=== PATIENT | female | born 1985 | race Two or more races ===

== ENCOUNTER 2021-01-14 08:51 | Day surgery (SDC) | payer MEDICAID ==
[~2021-01-14] VITALS: Ht 172.7 cm; Wt 139.1 kg
[~2021-01-14 08:51] MED LIST: ALPR-624 PO; BENZ-16 PO; DIAZ5TAB22 PO; DICY10CA88 PO; LEVA15HF4 IH; METH-603 PO; NORCO10T PO; TRAZ-89 PO; ZOF4T PO
[2021-01-14] MEDS ORDERED: LIDOcaine Viscous 15ml cup ONE (08:56)
[2021-01-14] MEDS ORDERED: fentaNYL/PF 50MCG/1 ML 2ML syringe ONE (08:56)
[2021-01-14] MEDS ORDERED: MIDAZolam 1 MG/ML 5ML VIAL ONE ×2 (08:56)
[2021-01-14 09:03] VITALS: BP 154/103
[2021-01-14] MEDS ORDERED: OMEP-50 PO (09:08)
[2021-01-14] MEDS ORDERED: GABA600T13 PO (09:09)
[2021-01-14] MEDS ORDERED: LISI20TA28 PO (09:14)
[2021-01-14 10:18] VITALS: BP 153/90
[2021-01-14 10:28] VITALS: BP 138/81
[2021-01-14 10:38] VITALS: BP 137/75
[2021-01-14 10:48] VITALS: BP 131/78
== END 2021-01-14 11:08 | disposition home or self-care (01) ==
LOC: GI LAB 08:51
PROVIDERS: ATTEND Internal Medicine Gastroenterology
DX: K92.1 Melena (principal); R12 Heartburn; K29.50 Unspecified chronic gastritis without bleeding; K44.9 Diaphragmatic hernia without obstruction or gangrene; K25.9 Gastric ulcer, unspecified as acute or chronic, without hemorrhage or perforation; I10 Essential (primary) hypertension; E66.9 Obesity, unspecified; Z68.42 Body mass index [BMI] 45.0-49.9, adult; Z88.8 Allergy status to other drugs, medicaments and biological substances; Z88.2 Allergy status to sulfonamides; Z88.5 Allergy status to narcotic agent; Z86.73 Personal history of transient ischemic attack (TIA), and cerebral infarction without residual deficits; Z87.891 Personal history of nicotine dependence
CPT/HCPCS: 43239; 99152; J2250; J3010; J7040; A4620

== ENCOUNTER 2025-05-15 19:42 | Emergency (ER) | payer MEDICAID ==
[~2025-05-15] VITALS: Ht 172.7 cm; Wt 124.5 kg
[~2025-05-15 19:42] MED LIST changes: -ALPR-624 PO; -BENZ-16 PO; -DICY10CA88 PO; +GABA-1405 PO; -LEVA15HF4 IH; +LISI20TA28 PO; -METH-603 PO; -NORCO10T PO; +OMEP20CA16 PO; -TRAZ-89 PO
[2025-05-15 20:01] VITALS: TEMP 98.4
[2025-05-15 20:24] LABS: MEAN PLATELET VOLUME 7.7 FL (7.4-10.4); RED CELL DISTRIBUTION WIDTH 13.0 % (11.5-14.5)
[2025-05-15 20:41] LABS: CREATININE 0.75 MG/DL (0.40-0.90); TOTAL CARBON DIOXIDE 29.6 MMOL/L (24-32); eCRCL 99 ML/MIN; eGFR 85 ML/MIN
[2025-05-15 22:19] LABS: URINE HCG NEGATIVE (NEG)
--- NOTE | 2025-05-15 22:19 | Physician Documentation ---
History of Present Illness ~ Chief Complaint: Urinary Symptoms Stated Complaint: ABDOMINAL PAIN Time Seen by MD: 21:59 Primary Medical Doctor: Mariano Melgar Mode of Arrival: POV, Ambulatory HPI Patient presents to the emergency room with left-sided abdominal pain and back pain. She states that has began this afternoon of sudden onset. History of kidney stones. She also endorses dysuria. No fevers. Patient also endorses diarrhea over the past 10 days. No nausea or vomiting. She has had some Tylenol for her pain Medication Reconciliation Allergies: Coded Allergies: fentanyl (Verified Allergy, Severe, ANAPHLYAXIS, 05/15/25) Bacitracin Zinc (Unverified Allergy, Unknown, 05/15/25) Sulfa (Sulfonamide Antibiotics) (Verified Allergy, Unknown, 05/15/25) bacitracin (Unverified Allergy, Unknown, 05/15/25) benzalkonium chloride (Unverified Allergy, Unknown, 05/15/25) clonidine (Unverified Allergy, Unknown, 05/15/25) gramicidin D (Unverified Allergy, Unknown, 05/15/25) neomycin sulfate (Unverified Allergy, Unknown, 05/15/25) polymyxin B (Unverified Allergy, Unknown, 05/15/25) polymyxin B sulfate (Unverified Allergy, Unknown, 05/15/25) tomato (Unverified Allergy, Unknown, 05/15/25) morphine (Verified Adverse Reaction, Mild, NAUSEA, 05/15/25) Scheduled Diazepam* (Valium*), 10 MG PO HS, (Reported) Gabapentin (Gabapentin), 1 TAB PO DAILY, (Reported) Lisinopril (Lisinopril), Unknown Dose PO DAILY, (Reported) Omeprazole (Omeprazole), 1 CAP PO DAILY, (Reported) Ondansetron ODT* (Zofran ODT*), 4 MG PO Q6H Past Medical History Past Medical History: Seizures, Asthma, GERD, Kidney Stones, Chronic Pain, Chronic Back Pain, Anxiety, Bipolar, Depression, Schizophrenia Past Surgical History: cholecystectomy, tonsillectomy, tubal ligation Alcohol Use: None Drug Use: marijuana, methamphetamine, heroin Lives with: S/O Lives In: Home Occupation: disabled Review of Systems ROS All review of systems negative except as per HPI Physical Exam Vital Signs: Temperature: 98.4, Source: Oral, Heart Rate: 69, Respiratory Rate: 16, BP: 174/103, Pulse Oximetry: 98, Weight: 124.550 Oxygen Flow Rate: 0 Physical Exam General: Patient is awake, alert, oriented x4 in no acute distress and well appearing.~ Head: Normocephalic and atraumatic. Eyes: Conjunctival normal. EOMI. PERRL. ENT: Mucous membranes moist. Neck: Supple, trachea is midline. Chest: Clear to auscultation bilaterally without rales, rhonchi, or wheezes. There is no accessory muscle use or retractions. Cardiac: RRR without murmurs, gallops, or rubs. Abd: Soft, nondistended, mild left lower quadrant tenderness to palpation without peritonitis Back: Left-sided CVA tenderness to palpation. Progress Results/Orders Results/Orders Orders - ROCK RIVERA MD Ct Abdomen Pelvis (05/15/25 22:55) Completed Orders - ROCK RIVERA MD Urinalysis, Cult If Indicated (05/15/25 20:08) Hcg, Ur Ql (05/15/25 20:08) Cbc/Diff (05/15/25 20:08) BMP (05/15/25 20:08) Lipase (05/15/25 20:08) CMP (05/15/25 20:08) Ketorolac Trometh 15mg/Ml Vial (Toradol (05/15/25 22:30) Ct Abdomen Pelvis (05/15/25 22:55) Medications Received in ER Medications (Trade) Dose Ordered Sig/Alva Route PRN Reason Start Time Stop Time Status Last Admin Dose Admin (Toradol injection) 30 mg ONCE ONCE IM 05/15/25 22:30 05/15/25 22:31 DC 05/15/25 23:22 30 MG Vital Signs 05/15/25 05/15/25 05/15/25 05/15/25 20:01 21:56 22:00 23:00 Temp 98.4 Pulse 74 69 65 Resp 16 16 16 14 B/P (MAP) 151/103 174/103 (126) 155/92 (113) Pulse Ox 100 98 98 O2 Flow Rate 0 0 0 05/15/25 23:22 Resp 14 Laboratory Tests Test 05/15/25 20:09 05/15/25 20:15 Urine Specimen Description Cln catch midstream Urine Color Straw Urine Clarity Clear Urine pH 7.0 Urine Specific [place] 1.010 Urine Protein Negative Urine Glucose (UA) Negative Urine Ketones Negative Urine Occult Blood Negative Urine Nitrite Negative Urine Bilirubin Negative Urine Urobilinogen 0.2 Urine Leukocyte Esterase Negative Urine Culture Indicated Not ind Volume Urine Centrifuged 10 ml Urine HCG, Qualitative Negative Urine Comment White Blood Count 8.3 Red Blood Count 4.31 Hemoglobin 13.2 Hematocrit 38.0 Mean Corpuscular Volume 88.1 Mean Corpuscular Hemoglobin 30.6 Mean Corpuscular Hemoglobin Concent 34.7 Red Cell Distribution Width 13.0 Platelet Count 291 Mean Platelet Volume 7.7 Neutrophils (%) (Auto) 63.6 Lymphocytes (%) (Auto) 23.0 Monocytes (%) (Auto) 9.0 Eosinophils (%) (Auto) 3.4 Basophils (%) (Auto) 1.0 Neutrophils # (Auto) 5.3 Lymphocytes # (Auto) 1.9 Monocytes # (Auto) 0.7 Eosinophils # (Auto) 0.3 Basophils # (Auto) 0.1 CBC Comment Sodium Level 138 Potassium Level 4.2 Chloride Level 103 Carbon Dioxide Level 29.6 Anion Gap 5 L Blood Urea Nitrogen 14 Creatinine 0.75 Estimated GFR/1.73 m2 85 BUN/Creatinine Ratio 18.7 Glucose Level 77 Calcium Level 8.2 L Total Bilirubin 0.4 Aspartate Amino Transf (AST/SGOT) 19 Alanine Aminotransferase (ALT/SGPT) 25 Alkaline Phosphatase 88 Total Protein 7.6 Albumin 3.6 Globulin 4.0 Albumin/Globulin Ratio 0.9 L Lipase 70 Chemistry Comments Medical Decision Making Additional information obtaine: old records Findings Patient presents to the emergency room for evaluation of abdominal pain. Differentials include but are not limited to infectious process, kidney stone, aortic pathology, diverticulitis, constipation therefore emergent labs and imaging indicated. Labs and imaging reassuring. Upon re-evaluation patient was sleeping comfortably. Urinary Diff Dx:Considerations: Include: AAA, , Aortic dissection, Appendicitis, Bowel obstruction, Cholelithiasis, Choleangitis, DJD, Ectopic , Hepatitis, HNP, Impaction, Intrauterine , Musculoskeletal pain, Ovarian torsion, Pancreatitis, PID, Post-Op complication, Pyelonephritis, Renal failure, Strain, Urinary Obstruction, Urolithiasis, Urinary retention, UTI, Vaginitis, Other Genital Diff Dx:Considerations: Include: -Complete, - Incomplete, -Inevitable, Ablortion-Missed, -Threatened, Abruptio placentae, Bartholin abscess, Bartholin cyst, Blood loss anemia, Constipation, Cervicitis, Dsymenorrhea, Ectopic , Foreign body, Hormonal, Hidradenitis suppurativa, Intrauterine , Menorrhagia, Menometrorrhagia, Menstrual bleeding, Myomatous uterus, Perianal abscess, Physiologic discharge, Pinworms, PID, Placenta previa, , Precipitous Hct, Trauma, UTI, Vaginitis(osis)-Atrophic, Vaginitis, Vaginitis(osis)-Bacterial, Vaginitis(osis)- Candidal, Vaginitis(osis)-Contact, Vaginitis(osis)-Herpes, Vaginitis(osis)- Trich., Other Departure Disposition: HOME / SELF CARE / HOMELESS Impression: Primary Impression: Abdominal pain Condition: Stable Discharge Instructions: Abdominal Pain, Adult Referrals: NO PRIMARY CARE PROVIDER (PCP) Signature Scribe Signature: No scribe Attestation: The note accurately reflects work and decisions made by me.Rock Rivera MD 05/16/25 00:33 ROCK RIVERA MD May 15, 2025 22:19
[2025-05-15 22:26] LABS: LEUKOCYTE ESTERASE ,URINE NEGATIVE (Neg); NITRITES, URINE NEGATIVE (Neg); OCCULT BLOOD,URINE NEGATIVE (Neg)
[2025-05-15 22:30] LABS: UA COLLECTION TYPE CLN CATCH MIDSTREAM
[2025-05-15 23:00] VITALS: BP 155/92; PULSE 65; O2SAT 98
[2025-05-15 23:22] VITALS: RESP 14
[2025-05-15] MEDS: ketorolac trometh 15mg/ml vial 15 MG/ML ML IM ONE (23:22)
--- NOTE | 2025-05-15 23:25 | RADIOLOGY REPORT ---
Exam: CT CT ABDOMEN PELVIS History: llq pain Comparison Study: None Technique: Multidetector spiral CT of the abdomen was performed from lung bases to pubic symphysis. Imaging was performed without IV contrast. Axial, coronal and sagittal multiplanar reformats were obtained from the axial data set by the technologist. Radiation Dose : 1. Abdomen/Pelvis: CTDIvol 37 mGy, DLP 1940 mGy*cm. Findings: Evaluation of solid organs is limited due to lack of intravenous contrast use. Lower Chest: No acute findings. Liver: Unremarkable. Gallbladder and Biliary Tree: Cholecystectomy change. Pancreas: Mild atrophy. Spleen: Unremarkable. Adrenal Glands: Unremarkable. Kidneys/Ureters: No urinary stone or obstruction. Bladder: Grossly unremarkable for degree of distention. Pelvic Organs: Absent uterus. Bowel: No evidence of bowel wall thickening or obstruction. Small hiatal hernia. The appendix appears surgically absent. Vasculature: Unremarkable. Lymphadenopathy: No obvious adenopathy. Peritoneum: No ascites, free air, or fluid collection. Abdominal Wall: No acute abnormality. Left lateral mid abdomen subcentimeter metallic density in the subcutaneous tissues. Musculoskeletal: No acute findings. Mild L5-S1 spondylosis. IMPRESSION: 1. No acute abdominopelvic abnormality, evidence of urinary stone or obstruction. 2. Chronic and incidental findings as above. Radiation optimization: All CT scans at this facility use at least one of these dose optimization techniques: automated exposure control mA and/or kV adjustment per patient size (includes targeted exams where dose is matched to clinical indication) or iterative reconstruction.
== END 2025-05-16 00:50 | disposition home or self-care (01) ==
LOC: ER 19:42
DX: R10.32 Left lower quadrant pain (principal); F20.9 Schizophrenia, unspecified; F31.9 Bipolar disorder, unspecified; G89.29 Other chronic pain; J45.909 Unspecified asthma, uncomplicated; F41.9 Anxiety disorder, unspecified; K21.9 Gastro-esophageal reflux disease without esophagitis; F12.90 Cannabis use, unspecified, uncomplicated; F15.90 Other stimulant use, unspecified, uncomplicated; F11.90 Opioid use, unspecified, uncomplicated; Z90.49 Acquired absence of other specified parts of digestive tract; Z90.89 Acquired absence of other organs; Z88.2 Allergy status to sulfonamides; Z98.51 Tubal ligation status; Z88.8 Allergy status to other drugs, medicaments and biological substances; Z88.5 Allergy status to narcotic agent; Z88.1 Allergy status to other antibiotic agents; Z87.442 Personal history of urinary calculi; Z79.899 Other long term (current) drug therapy
CPT/HCPCS: 36415; 74176; 80053; 81003; 81025; 83690; 85025; 96372; 99285; J1885

== ENCOUNTER 2025-05-21 15:35 | Emergency (ER) | payer MEDICAID ==
[~2025-05-21] VITALS: Ht 170.2 cm; Wt 122.7 kg
--- NOTE | 2025-05-21 15:51 | ELECTROCARDIOGRAPH REPORT ---
[facility] Test Date: 2025-05-21 Test Time: 15:49:33 Pat Name: FARRAH ONOFRE Department: EMERGENCY ROOM Room: Gender: F [employer]: : [id number] Requested By: ROSE TERRELL Order Number: [id number] Reading MD: Dr. Messi Merrill Measurements Intervals [place] Rate: 68 P: 16 ID: [id number] QRS: -56 QRSD: 118 T: 24 QT: 415 QTc: 442 Interpretive Statements Sinus rhythm Nonspecific IVCD with LAD Inferior infarct, old Anterior infarct, old Electronically Signed On 05-22-2025 18:48:[address] Messi Merrill Please click the below link to view image of tracing.
[2025-05-21 15:55] LABS: MEAN PLATELET VOLUME 7.6 FL (7.4-10.4); RED CELL DISTRIBUTION WIDTH 12.9 % (11.5-14.5)
[2025-05-21 16:15] LABS: CREATININE 0.73 MG/DL (0.40-0.90); PRO BRAIN NATRIURETIC PEPTIDE 94 PG/ML (0-125); TOTAL CARBON DIOXIDE 28.9 MMOL/L (24-32); eCRCL 98 ML/MIN; eGFR 87 ML/MIN
--- NOTE | 2025-05-21 16:21 | RADIOLOGY REPORT ---
CHEST RADIOGRAPH Indication: CP Technique: Single frontal view of the chest was obtained COMPARISON: CT CT ABDOMEN PELVIS on DOS: 05/15/25 FINDINGS: Lines and Tubes: None Lungs: Clear Pleura: No effusion. No pneumothorax. Cardiomediastinal contours: Unremarkable Bones: Unremarkable IMPRESSION: No acute disease.
[2025-05-21 18:40] VITALS: BP 121/68; PULSE 83; RESP 16; TEMP 98; O2SAT 97
--- NOTE | 2025-05-21 19:18 | RADIOLOGY REPORT ---
CLINICAL HISTORY: pain, numbness, fall TECHNIQUE: CT exam of the cervical spine was performed without intravenous contrast. This exam was performed according to our departmental dose optimization program. Up-to-date CT equipment and radiation dose reduction techniques are utilized as appropriate. CTDI 24 DLP 552 COMPARISON: CT CT ABDOMEN PELVIS on DOS: 05/15/25 FINDINGS: There is straightening of the normal cervical lordosis, likely related patient positioning or previous surgery. There has been anterior C4-C5 fusion surgery with an anterior surgical plate and bilateral vertebral body screws present. There is a disc spacer present at C4-C5. The prevertebral space is within normal limits. No acute fracture is seen There is no high-grade central canal or neural foraminal narrowing by CT. IMPRESSION: C4-C5 fusion surgery. No acute abnormality seen.
[2025-05-21] MEDS: ondansetron 4mg rapidly disintigrating tab PO ONE (19:19)
[2025-05-21] MEDS ORDERED: HYDR-3965 PO (19:43)
[2025-05-21] MEDS: HYDROcodone/acetaminophen 10/325mg tab PO ONE (19:45)
--- NOTE | 2025-05-21 19:47 | Physician Documentation ---
History of Present Illness ~ Chief Complaint: Chest Pain Stated Complaint: ARM NUMBNESS/CHEST PAIN Time Seen by MD: 17:24 Primary Medical Doctor: Mariano Melgar Mode of Arrival: POV, Ambulatory HPI Patient 40-year-old female that reports to the emergency department for evaluation of chest wall pain times several days possibly weeks. Patient reports that she has numbness and tingling in her upper extremities she believes that is secondary to a previous cervical spine injury and fusion. Patient reports that she fell approximately 3 weeks ago and is concerned that she may have re-injured that. Since that time her chest wall has been sore. Patient denies any shortness of breath chest pain that radiates chest pressure nausea vomiting diarrhea or any other symptoms at this time. Tetanus within 5 Years?: No Allergies: Coded Allergies: fentanyl (Verified Allergy, Severe, ANAPHLYAXIS, 05/15/25) Bacitracin Zinc (Unverified Allergy, Unknown, 05/15/25) Sulfa (Sulfonamide Antibiotics) (Verified Allergy, Unknown, 05/15/25) bacitracin (Unverified Allergy, Unknown, 05/15/25) benzalkonium chloride (Unverified Allergy, Unknown, 05/15/25) clonidine (Unverified Allergy, Unknown, 05/15/25) gramicidin D (Unverified Allergy, Unknown, 05/15/25) neomycin sulfate (Unverified Allergy, Unknown, 05/15/25) polymyxin B (Unverified Allergy, Unknown, 05/15/25) polymyxin B sulfate (Unverified Allergy, Unknown, 05/15/25) tomato (Unverified Allergy, Unknown, 05/15/25) morphine (Verified Adverse Reaction, Mild, NAUSEA, 05/15/25) Active Prescriptions See Medication Reconciliation Form. Medication Reconciliation Scheduled Diazepam* (Valium*), 10 MG PO HS, (Reported) Gabapentin (Gabapentin), 1 TAB PO DAILY, (Reported) Lisinopril (Lisinopril), Unknown Dose PO DAILY, (Reported) Omeprazole (Omeprazole), 1 CAP PO DAILY, (Reported) Ondansetron ODT* (Zofran ODT*), 4 MG PO Q6H Past Medical History Past Medical History: Seizures, Asthma, GERD, Kidney Stones, Chronic Pain, Chronic Back Pain, Anxiety, Bipolar, Depression, Schizophrenia Past Surgical History: cholecystectomy, tonsillectomy, tubal ligation Smoking Status: Current every day smoker Alcohol Use: None Drug Use: marijuana, methamphetamine, heroin Lives with: S/O Lives In: Home Occupation: disabled Review of Systems ROS As stated above in the HPI, otherwise all systems are reviewed and negative. Physical Exam Vital Signs: Temperature: 98.0, Source: Oral, Heart Rate: 83, Respiratory Rate: 16, BP: 121/68, Pulse Oximetry: 97, Weight: 122.730 Oxygen Flow Rate: 0 Physical Exam VITALS: Reviewed and as above. GENERAL: Alert, no apparent distress. HEENT: Normocephalic, atraumatic, PERRL, EOMI, dry mucosa, no erythema RESPIRATORY: Lungs clear, normal breath sounds, no respiratory distress. CHEST: No accessory muscle use, no retractions CV: Regular rate, rhythm, no edema, no murmur, No: JVD GI: Soft, non-tender, bowels sounds present, no rebound, guarding, or rigidity BACK: No CVA tenderness, or swelling MUSCULOSKELETAL No deformities, no edema SKIN: Warm and dry, no rash NEURO: Oriented x4, No motor or sensory deficit PSYCH: Normal mood and affect, no agitation Progress Results/Orders Results/Orders Orders - TESFAYE LEE SAUSAGE STUFFER Ct Cervical Spine (05/21/25 18:35) Completed Orders - TESFAYE LEE SAUSAGE STUFFER Ct Cervical Spine (05/21/25 18:35) Ondansetron Disint. Tablet (Zofran Odt T (05/21/25 19:10) Methylprednisolone Sod Succ (Solumedrol (05/21/25 19:40) Hydrocodone/Apap 10/325 ([place] 10/325mg (05/21/25 19:40) Medications Received in ER Medications (Trade) Dose Ordered Sig/Alva Route PRN Reason Start Time Stop Time Status Last Admin Dose Admin (Zofran ODT tablet) 4 mg ONCE ONCE PO 05/21/25 19:10 05/21/25 19:11 DC 05/21/25 19:19 4 MG Vital Signs 05/21/25 05/21/25 05/21/25 05/21/25 15:37 16:53 17:04 18:40 Temp 98.0 98.0 Pulse 76 74 83 Resp 16 16 16 16 B/P (MAP) 155/97 156/91 (112) 121/68 (85) Pulse Ox 99 98 97 O2 Flow Rate 0 0 0 Laboratory Tests Test 05/21/25 15:48 05/21/25 17:55 White Blood Count 8.4 Red Blood Count 4.40 Hemoglobin 13.4 Hematocrit 38.8 Mean Corpuscular Volume 88.3 Mean Corpuscular Hemoglobin 30.5 Mean Corpuscular Hemoglobin Concent 34.5 Red Cell Distribution Width 12.9 Platelet Count 291 Mean Platelet Volume 7.6 Neutrophils (%) (Auto) 65.0 Lymphocytes (%) (Auto) 20.5 L Monocytes (%) (Auto) 9.3 Eosinophils (%) (Auto) 4.6 Basophils (%) (Auto) 0.6 Neutrophils # (Auto) 5.5 Lymphocytes # (Auto) 1.7 Monocytes # (Auto) 0.8 Eosinophils # (Auto) 0.4 Basophils # (Auto) 0.1 CBC Comment Sodium Level 141 Potassium Level 3.7 Chloride Level 106 Carbon Dioxide Level 28.9 Anion Gap 6 L Blood Urea Nitrogen 11 Creatinine 0.73 Estimated GFR/1.73 m2 87 BUN/Creatinine Ratio 15.1 Glucose Level 88 Calcium Level 8.2 L Troponin I High Sensitivity 5 4 Pro-B-Type Natriuretic Peptide 94 Albumin 3.8 Chemistry Comments Troponin I High Sens Percent Delta 20 Troponin I Hi Sens Absolute Change -1 Medical Decision Making Additional information obtaine: other Findings Discharge Medical Decision-Making Note Diagnosis: Musculoskeletal pain (nonspecific, acute) Clinical Summary: Patient presented with acute musculoskeletal pain. Comprehensive evaluation included CT of the cervical spine, chest X-ray, cardiac workup, and laboratory diagnostics, all of which were negative for acute pathology. No red flag symptoms (e.g., trauma, malignancy, infection, neurologic deficit) identified. No evidence of radiculopathy or systemic disease. Medical Decision-Making: Imaging and laboratory studies negative: No evidence of fracture, infection, malignancy, or other serious pathology. Diagnosis established: Musculoskeletal pain, consistent with nonspecific low back pain. Risk assessment: No features suggesting high risk for chronicity or poor prognosis. Management plan: Education and reassurance: Patient informed of favorable prognosis and absence of serious underlying condition. Activity: Advised to remain active and resume normal activities as tolerated; bed rest discouraged. Self-care: Recommended use of heat (e.g., heating pad) for symptomatic relief. Pharmacologic therapy: Short-term NSAIDs may be used if no contraindications; acetaminophen is an alternative. Follow-up: If pain persists beyond 2 months or functional limitations develop, referral to physical therapy or specialist is indicated. Prevention: Screening tools (e.g., rebro Musculoskeletal Pain Questionnaire) may be considered to assess risk of chronicity. Shared Decision-Making: Patient engaged in discussion regarding diagnosis, prognosis, and management options. Treatment plan tailored to patient preferences and clinical context. Disposition: Safe for discharge. Return precautions provided. Follow-up as needed for persistent or worsening symptoms. Differential Dx:Considerations: Include: Chest wall contusion, Flail chest, Myocardial contusion, Pneumothorax, Pulmonary contusion, Rib fracture, Renal contusion, Splenic fracture, Tension pneumothorax, Other Departure Disposition: 01 HOME / SELF CARE / HOMELESS Impression: Primary Impression: Chest wall pain Additional Impressions: Musculoskeletal pain Cervical radiculopathy Condition: Stable Discharge Instructions: Cervical Radiculopathy, [id number], Chest Wall Pain, Musculoskeletal Pain Referrals: NO PRIMARY CARE PROVIDER (PCP) Prescriptions Hydrocodone Bit/Acetaminophen 5/325 MG ([place] 5/325 MG) 5 Mg/325 Mg Tablet 1 TAB PO Q12H PRN for pain for 5 Days, #10 TAB Prov: TESFAYE LEE 05/21/25 Education Educated: Patient Educated regarding: diagnosis, treatment, need for follow up Signature Scribe Signature: A Attestation: Scribed for Tesfaye Lee by MARS Lanza . 05/21/25 19:50 TESFAYE LEE May 21, 2025 19:47
== END 2025-05-21 19:52 | disposition home or self-care (01) ==
LOC: ER 15:36
DX: R07.89 Other chest pain (principal); M54.12 Radiculopathy, cervical region; F17.200 Nicotine dependence, unspecified, uncomplicated; F12.90 Cannabis use, unspecified, uncomplicated; F20.9 Schizophrenia, unspecified; F31.9 Bipolar disorder, unspecified; F41.9 Anxiety disorder, unspecified; K21.9 Gastro-esophageal reflux disease without esophagitis; G89.29 Other chronic pain; I25.2 Old myocardial infarction; J45.909 Unspecified asthma, uncomplicated; Z79.899 Other long term (current) drug therapy; Z88.2 Allergy status to sulfonamides; Z88.5 Allergy status to narcotic agent; Z88.1 Allergy status to other antibiotic agents; Z87.442 Personal history of urinary calculi; Z90.49 Acquired absence of other specified parts of digestive tract; Z90.89 Acquired absence of other organs
CPT/HCPCS: 36415; 71045; 72125; 80048; 83880; 84484; 85025; 93005; 96372; 99285; J2919

== ENCOUNTER 2025-06-07 04:14 | Emergency (ER) | payer MEDICAID ==
[~2025-06-07] VITALS: Ht 172.7 cm; Wt 123.2 kg
[2025-06-07 04:23] VITALS: BP 129/99; PULSE 74; RESP 16; TEMP 97.6; O2SAT 98
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
== END 2025-06-07 05:53 | disposition home or self-care (01) ==
LOC: ER 04:14
DX: M75.31 Calcific tendinitis of right shoulder (principal); F20.9 Schizophrenia, unspecified; F31.9 Bipolar disorder, unspecified; G89.29 Other chronic pain; J45.909 Unspecified asthma, uncomplicated; F12.90 Cannabis use, unspecified, uncomplicated; F15.90 Other stimulant use, unspecified, uncomplicated; F11.90 Opioid use, unspecified, uncomplicated; Z87.442 Personal history of urinary calculi; K21.9 Gastro-esophageal reflux disease without esophagitis; F41.9 Anxiety disorder, unspecified; Z88.2 Allergy status to sulfonamides; Z88.5 Allergy status to narcotic agent; Z88.8 Allergy status to other drugs, medicaments and biological substances; Z90.49 Acquired absence of other specified parts of digestive tract; Z90.89 Acquired absence of other organs; Z98.51 Tubal ligation status; Z79.899 Other long term (current) drug therapy
CPT/HCPCS: 73030; 99283

== ENCOUNTER 2025-06-16 01:48 | Emergency (ER) | payer MEDICAID ==
[~2025-06-16] VITALS: Ht 172.7 cm; Wt 124.5 kg
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
--- NOTE | 2025-06-16 05:12 | RADIOLOGY REPORT ---
EXAM: CT CT LUMBAR SPINE HISTORY: pain COMPARISON: None CTDIvol 37 mGy, DLP 1173 mGy*cm. TECHNIQUE: Multiple axial CT images of the spine were obtained using bone algorithm. Axial and coronal reformatting was done. Bone and soft tissue windows were reviewed. FINDINGS: No evidence of definite acute fracture, spinal dislocation, or significant appearing acute subluxation is seen. Disc bulge with suggestion of moderate canal stenosis at L5-S1. IMPRESSION: No definite CT evidence of acute fracture or dislocation of the bony lumbar spine.
[2025-06-16] MEDS: triamcinolone acetonide 40mg/ml inj IM ONE (06:02)
[2025-06-16] MEDS ORDERED: DIAZ5TAB22 PO (06:45)
[2025-06-16] MEDS ORDERED: HYDR-3965 PO (06:45)
[2025-06-16 08:21] VITALS: BP 120/72; PULSE 71; RESP 14; TEMP 97.7; O2SAT 95
== END 2025-06-16 08:22 | disposition home or self-care (01) ==
LOC: ER 01:48
DX: M54.50 Low back pain, unspecified (principal); F12.90 Cannabis use, unspecified, uncomplicated; F15.90 Other stimulant use, unspecified, uncomplicated; F11.90 Opioid use, unspecified, uncomplicated; F17.200 Nicotine dependence, unspecified, uncomplicated; F20.9 Schizophrenia, unspecified; F31.9 Bipolar disorder, unspecified; G89.29 Other chronic pain; K21.9 Gastro-esophageal reflux disease without esophagitis; F41.9 Anxiety disorder, unspecified; Z87.442 Personal history of urinary calculi; Z88.0 Allergy status to penicillin; Z88.2 Allergy status to sulfonamides; Z88.5 Allergy status to narcotic agent; Z88.8 Allergy status to other drugs, medicaments and biological substances; Z98.51 Tubal ligation status; Z90.89 Acquired absence of other organs; Z90.49 Acquired absence of other specified parts of digestive tract; Z79.899 Other long term (current) drug therapy
CPT/HCPCS: 74176; 96372; 99285; J1171; J3301

== ENCOUNTER 2025-06-18 11:46 | Emergency (ER) | payer MEDICAID ==
[~2025-06-18] VITALS: Ht 172.7 cm; Wt 128.8 kg
[~2025-06-18 11:46] MED LIST changes: +HYDR-3965 PO
[2025-06-18 12:24] LABS: LEUKOCYTE ESTERASE ,URINE NEGATIVE (Neg); NITRITES, URINE NEGATIVE (Neg); OCCULT BLOOD,URINE NEGATIVE (Neg)
[2025-06-18 12:26] LABS: URINE HCG NEGATIVE (NEG)
[2025-06-18 12:42] LABS: UA COLLECTION TYPE CLN CATCH MIDSTREAM
--- NOTE | 2025-06-18 12:42 | Physician Documentation ---
History of Present Illness ~ Chief Complaint: Urinary Retention Stated Complaint: BACK PAIN Time Seen by MD: 12:38 Primary Medical Doctor: None HPI 40-year-old female presents with acute stool and urinary incontinence. She was seen here two days ago after having a back injury and had a CT done then. States that the incontinence has started since then and that the last three days she has felt feverish but has not test herself. Reports weakness in her lower extremity reports tingling but no numbness. Says she is diagnosed with L5-S1 disc bulging and spinal stenosis. He has called her surgeon Dr. Osullivan and was advised to come to the ED for evaluate ct finding from 06/16:No evidence of definite acute fracture, spinal dislocation, or significant appearing acute subluxation is seen. Disc bulge with suggestion of moderate canal stenosis at L5-S1. Day of Onset: Jun 18, 2025 Medication Reconciliation Allergies: Coded Allergies: fentanyl (Verified Allergy, Severe, ANAPHLYAXIS, 06/18/25) tramadol (Verified Allergy, Severe, 06/18/25) SEIZURES Bacitracin Zinc (Unverified Allergy, Unknown, 06/18/25) Penicillins (Verified Allergy, Unknown, 06/18/25) Sulfa (Sulfonamide Antibiotics) (Verified Allergy, Unknown, 06/18/25) bacitracin (Unverified Allergy, Unknown, 06/18/25) benzalkonium chloride (Unverified Allergy, Unknown, 06/18/25) clonidine (Unverified Allergy, Unknown, 06/18/25) cyclobenzaprine (Verified Allergy, Unknown, 06/18/25) HIVES AND NAUSEA gramicidin D (Unverified Allergy, Unknown, 06/18/25) neomycin sulfate (Unverified Allergy, Unknown, 06/18/25) polymyxin B (Unverified Allergy, Unknown, 06/18/25) polymyxin B sulfate (Unverified Allergy, Unknown, 06/18/25) morphine (Verified Adverse Reaction, Mild, NAUSEA, 06/18/25) Scheduled Diazepam* (Valium*), 10 MG PO HS, (Reported) Diazepam* (Valium*), 1 TAB PO BID Gabapentin (Gabapentin), 1 TAB PO DAILY, (Reported) Lisinopril (Lisinopril), Unknown Dose PO DAILY, (Reported) Omeprazole (Omeprazole), 1 CAP PO DAILY, (Reported) Ondansetron ODT* (Zofran ODT*), 4 MG PO Q6H Scheduled PRN Hydrocodone Bit/Acetaminophen 5/325 MG ([place] 5/325 MG), 1 TAB PO Q12H PRN PRN for pain Past Medical History Past Medical History: Seizures, Asthma, GERD, Kidney Stones, Chronic Pain, Chronic Back Pain, Anxiety, Bipolar, Depression, Schizophrenia Past Surgical History: cholecystectomy, tonsillectomy, tubal ligation Alcohol Use: None Drug Use: marijuana, methamphetamine, heroin Lives with: S/O Lives In: Home Occupation: disabled Review of Systems All Other Systems at this time: Reviewed and Negative ROS As stated above in the HPI, otherwise all systems are reviewed and negative. Physical Exam Vital Signs: Temperature: 97.3, Source: Oral, Heart Rate: 95, Respiratory Rate: 18, BP: 139/95, Pulse Oximetry: 99, Weight: 128.800 Oxygen Flow Rate: 0 Physical Exam General: Alert, no apparent distress. back: Here to palpation to the bilateral lumbar region Gastrointestinal: Soft, nontender, nondistended. Bowels sounds present. Normal rectal tone Extremities: Normal range of motion, no deformity. Negative Babinski reflex Neurologic: Oriented x4. Psychiatric: Normal mood and affect. Skin: Normal color, warm and dry. No edema, no ecchymosis. Progress Results/Orders Results/Orders Completed Orders - ROCK RIVERA MD Ketorolac Trometh 15mg/Ml Vial (Toradol (06/18/25 19:25) Medications Received in ER Medications (Trade) Dose Ordered Sig/[place]va Route PRN Reason Start Time Stop Time Status Last Admin Dose Admin (Zofran ODT tablet) 4 mg ONCE ONCE PO 06/18/25 16:30 06/18/25 16:31 DC 06/18/25 16:38 4 MG (Valium tablet) 10 mg ONCE ONCE PO 06/18/25 16:50 06/18/25 16:52 DC 06/18/25 16:57 10 MG (Toradol injection) 15 mg ONCE ONCE IV 06/18/25 19:25 06/18/25 19:26 DC 06/18/25 19:33 15 MG Vital Signs 06/18/25 06/18/25 06/18/25 06/18/25 11:50 12:39 14:21 14:55 Temp 97.3 97.3 Pulse 95 63 Resp 18 18 16 B/P (MAP) 139/95 146/94 (111) Pulse Ox 99 98 O2 Flow Rate 0 0 06/18/25 06/18/25 06/18/25 06/18/25 15:33 16:57 19:22 19:33 Temp 97.3 Pulse 74 Resp 16 16 18 16 B/P (MAP) 138/74 (95) Pulse Ox 100 O2 Flow Rate 0 Laboratory Tests Test 06/18/25 12:05 06/18/25 13:08 06/18/25 21:42 Urine Specimen Description Cln catch midstream Urine Color Yellow Urine Clarity Cloudy Urine pH 6.0 Urine Specific [place] >=1.030 Urine Protein Negative Urine Glucose (UA) Negative Urine Ketones Trace H Urine Occult Blood Negative Urine Nitrite Negative Urine Bilirubin Negative Urine Urobilinogen 1.0 Urine Leukocyte Esterase Negative Urine RBC 0-2 Urine WBC 0-4 Urine Squamous Epithelial Cells Many Urine Transitional Epithelial Cells Few Urine Bacteria 2+ Urine Culture Indicated Not ind Volume Urine Centrifuged 10 ml Urine HCG, Qualitative Negative Urine Comment White Blood Count 6.4 Red Blood Count 4.56 Hemoglobin 13.7 Hematocrit 40.5 Mean Corpuscular Volume 88.9 Mean Corpuscular Hemoglobin 30.1 Mean Corpuscular Hemoglobin Concent 33.9 Red Cell Distribution Width 12.7 Platelet Count 302 Mean Platelet Volume 7.6 Neutrophils (%) (Auto) 75.5 H Lymphocytes (%) (Auto) 13.9 L Monocytes (%) (Auto) 8.0 Eosinophils (%) (Auto) 1.9 Basophils (%) (Auto) 0.7 Neutrophils # (Auto) 4.8 Lymphocytes # (Auto) 0.9 L Monocytes # (Auto) 0.5 Eosinophils # (Auto) 0.1 Basophils # (Auto) 0.0 CBC Comment Sodium Level 139 Potassium Level 3.8 Chloride Level 106 Carbon Dioxide Level 25.4 Anion Gap 8 Blood Urea Nitrogen 13 Creatinine 0.73 Estimated GFR/1.73 m2 87 BUN/Creatinine Ratio 17.8 Glucose Level 66 L Lactic Acid Level 1.0 Calcium Level 8.5 Albumin 3.8 Procalcitonin < 0.05 Chemistry Comments Microbiology Date/Time Source Procedure Growth Status 06/18/25 13:13 Blood Arm Left Blood Culture - Preliminary NEGATIVE (LESS THAN 24 HOURS) Resulted Medical Decision Making Additional information obtaine: old records, N/A Findings Patient was evaluated for possible cauda equina however she had negative abnormalities to rectal tone he had had a normal Babinski. I does not indicate any signs of cauda equina. Urine was otherwise clean outside of excessive squamous cell. Bladder scan was negative for urinary retention. MRI reassuring for no cauda equina. Patient has complaints of urinary retention are unfounded. Possible constipation. Urinary Diff Dx:Considerations: Unlikely: AAA, , Aortic dissection, Appendicitis, Bowel obstruction, Cholelithiasis, Choleangitis, DJD, Ectopic , Hepatitis, HNP, Impaction, Intrauterine , Musculoskeletal pain, Ovarian torsion, Pancreatitis, PID, Post-Op complication, Pyelonephritis, Renal failure, Strain, Urinary Obstruction, Urolithiasis, Urinary retention, UTI, Vaginitis, Other Genital Diff Dx:Considerations: Include: -Complete, - Incomplete, -Inevitable, Ablortion-Missed, -Threatened, Abruptio placentae, Bartholin abscess, Bartholin cyst, Blood loss anemia, Constipation, Cervicitis, Dsymenorrhea, Ectopic , Foreign body, Hormonal, Hidradenit is suppurativa, Intrauterine , Menorrhagia, Menometrorrhagia, Menstrual bleeding, Myomatous uterus, Perianal abscess, Physiologic discharge, Pinworms, PID, Placenta previa, , Precipitous Hct, Trauma, UTI, Vaginitis(osis)- Atrophic, Vaginitis, Vaginitis(osis)-Bacterial, Vaginitis(osis)-Candidal, Vaginitis(osis)-Contact, Vaginitis(osis)-Herpes, Vaginitis(osis)-Trich., Other Departure Disposition: HOME / SELF CARE / HOMELESS Impression: Primary Impression: Bulging of intervertebral disc between L4 and L5 Additional Impressions: Low back pain Musculoskeletal pain Condition: Stable Discharge Instructions: Acute Back Pain, Adult Additional Instructions: Follow up with your doctor for possible physical therapy referral. Referrals: NO PRIMARY CARE PROVIDER (PCP) Signature Scribe Signature: g Attestation: The note accurately reflects work and decisions made by me.Rock Rivera MD 06/18/25 21:48 Scribed for Eliezer Wisdom C D Still Operator by Eliezer Vargas NP . 06/18/25 18:13 ELIEZER WISDOM NP Jun 18, 2025 12:42 ROCK RIVERA MD Jun 18, 2025 21:48
[2025-06-18 12:45] LABS: SQUAMOUS EPITHELIAL CELL,UR MANY /LPF (FEW)
[2025-06-18 13:23] LABS: MEAN PLATELET VOLUME 7.6 FL (7.4-10.4); RED CELL DISTRIBUTION WIDTH 12.7 % (11.5-14.5)
[2025-06-18 13:34] LABS: CREATININE 0.73 MG/DL (0.40-0.90); TOTAL CARBON DIOXIDE 25.4 MMOL/L (24-32); eCRCL 101 ML/MIN; eGFR 87 ML/MIN
[2025-06-18] MEDS: HYDROcodone/acetaminophen 10/325mg tab PO ONE ×2 (14:21→22:29)
[2025-06-18] MEDS: ondansetron 4mg rapidly disintigrating tab PO ONE (16:38)
[2025-06-18] MEDS: ketorolac trometh 15mg/ml vial 15 MG/ML ML IV ONE (19:33)
--- NOTE | 2025-06-18 21:29 | RADIOLOGY REPORT ---
EXAM: MR MRI LUMBAR SPINE INDICATION: lumbar pain , acute incontenance, numbness TECHNIQUE: Multiplanar, multisequence MR images of the lumbar spine were obtained without the administration of IV contrast. COMPARISON: CT CT LUMBAR SPINE on DOS: 06/16/25 FINDINGS: [ANATOMY]: Five lumbar-type vertebral bodies are present. The most inferior well-formed disc space will be referred to as L5-S1 for purposes of numbering in this report. [VERTEBRAL BODIES]: The vertebral bodies are normal in height, alignment, and marrow signal. No significant endplate modic changes. [SPINAL CANAL]: The conus medullaris is normal in signal and morphology, terminating at the L1-L2 level. Minimal posterior epidural lipomatosis. No significant spinal canal narrowing. [FACETS]: [id number] facet arthropathy at L4-5 and L5-S1 with associated edema of the right L4-5 facet /fluid. [OTHER]: Additional images obtained through the sacral nerve roots which appear to be grossly unremarkable however small possible 4 mm Tarlov cysts adjacent to the left S2 sacral foramina versus vessel (series 11, image 4). LEVEL BY LEVEL DISCUSSION: [T12-L1]: Unremarkable. [L1-L2]: Unremarkable. [L2-L3]: Unremarkable. [L3-L4]: Disc desiccation. [L4-L5]: Disc desiccation. [id number] bilateral proximal foraminal narrowing secondary to a combination of trace 2 mm broad-based inferior foraminal disc protrusions and facet arthropathy. [id number]-[id number] facet arthropathy with associated edema of the right facet /fluid. [L5-S1]: Disc desiccation. Minimal to mild bilateral proximal foraminal narrowing secondary to a combination of trace 2 mm broad-based inferior foraminal disc protrusions and facet arthropathy. Trace 2 mm broad-based posterior disc protrusion primarily in the right lateral recess with right inferior foraminal extension. [id number]-mh-[id number] facet arthropathy. IMPRESSION: 1. No significant spinal canal narrowing. 2. Tntr-mi-jdskomgt facet arthropathy at L4-5 and L5-S1 with associated edema of the right L4-5 facet /fluid. 3. Trace 2 mm broad-based posterior disc protrusions at L4-5 and L5-S1 with right inferior foraminal extension at L5-S1.
[2025-06-18 21:51] LABS: LEUKOCYTE ESTERASE ,URINE NEGATIVE (Neg); NITRITES, URINE NEGATIVE (Neg); OCCULT BLOOD,URINE NEGATIVE (Neg)
[2025-06-18 21:56] LABS: UA COLLECTION TYPE NON-SPECIFIED
[2025-06-18 22:35] VITALS: BP 128/88; PULSE 81; RESP 18; TEMP 97.8; O2SAT 99
== END 2025-06-18 22:41 | disposition home or self-care (01) ==
LOC: ER 11:46
DX: M51.360 Other intervertebral disc degeneration, lumbar region with discogenic back pain only (principal); G89.29 Other chronic pain; F41.9 Anxiety disorder, unspecified; F31.9 Bipolar disorder, unspecified; F20.9 Schizophrenia, unspecified; F12.90 Cannabis use, unspecified, uncomplicated; F15.90 Other stimulant use, unspecified, uncomplicated; F11.90 Opioid use, unspecified, uncomplicated; K21.9 Gastro-esophageal reflux disease without esophagitis; M48.07 Spinal stenosis, lumbosacral region; Z87.442 Personal history of urinary calculi; Z88.0 Allergy status to penicillin; Z88.1 Allergy status to other antibiotic agents; Z88.2 Allergy status to sulfonamides; Z88.5 Allergy status to narcotic agent; Z88.8 Allergy status to other drugs, medicaments and biological substances; Z90.89 Acquired absence of other organs; Z90.49 Acquired absence of other specified parts of digestive tract; Z98.51 Tubal ligation status; Z79.899 Other long term (current) drug therapy
CPT/HCPCS: 36415; 72148; 80048; 81001; 81003; 81025; 83605; 84145; 85025; 87040; 96374; 99285; J1885